=== PATIENT | female | born 1990 | race Caucasian/White ===

== ENCOUNTER 2023-03-05 10:39 | Outpatient (REF) | payer SELFPAY ==
[2023-03-05 14:22] LABS: Estimated Average Glucose 91 mg/dL; Hemoglobin A1c % 4.8 %
[2023-03-05 14:51] LABS: Alanine Aminotransferase 16 U/L (0-31); Albumin Level 4.1 g/dL (3.5-5.0); Alkaline Phosphatase 53 U/L (39-117); Anion Gap 9 (12-20); Aspartate Amino Transferase 14 U/L (5-31); Bilirubin Total 0.6 mg/dL (0.0-1.0); Blood Urea Nitrogen 16 mg/dL (9-16); Calcium 9.8 mg/dL (8.4-10.2); Carbon Dioxide 26 mmol/L (22-29); Chloride 107 mmol/L (96-108); Cholesterol 163 mg/dL; Estimated Glomerular Filt Rate > 60; Glucose Random 96 mg/dL (60-115); HDL Cholesterol 69 mg/dL; LDL Cholesterol Calculated 79 mg/dl; Potassium 4.5 mmol/L (3.3-5.1); Sodium 137 mmol/L (135-145); Triglycerides 75 mg/dL
[2023-03-05 15:08] LABS: TSH reflex Free T4 0.73 uIU/mL (0.32-4.0)
[2023-03-06 08:20] LABS: Hepatitis A Antibody IgM 0.29 Index (0-0.79); ~Hepatitis A Antibody IgM Nonreactive (Nonreactive)
[2023-03-06 08:46] LABS: HBS Num1 > 1000.00 mIU/mL (0-7.99); HBc Num1 0.09 S/CO (0.00-0.79); HBsAGNum1 0.31 S/CO (0.00-0.99); Hepatitis B Core Antibody Nonreactive (Nonreactive); Hepatitis B Surface Antigen Negative (Negative); ~HepC Num1 0.09 S/CO (0.00-0.79); ~Hepatitis B Surface Antibody REACTIVE (Nonreactive); ~Hepatitis C Antibody Nonreactive (Nonreactive)
== END 2023-03-05 10:40 | disposition home or self-care (01) ==
LOC: HO.HHCL 10:39
PROVIDERS: Visit Provider Registered Nurse
DX: R73.01 Impaired fasting glucose (principal)
CPT/HCPCS: 36415; 80053; 80061; 83036; 84443; 86704; 86706; 86709; 86803; 87340

== ENCOUNTER 2023-06-12 11:35 | Outpatient (REF) | payer BC, SELFPAY ==
[2023-06-12 13:36] LABS: MANUAL DIFF FLAG NO
[2023-06-12 13:51] LABS: Basophils Absolute Auto 0.1 X10*3/uL (0.0-0.2); Basophils Percent Auto 0.8 % (0-2); Eosinophils Absolute Auto 0.1 X10*3/uL (0.0-0.4); Eosinophils Percent Auto 0.8 % (0-4); Hematocrit 41.9 % (37.0-47.0); Hemoglobin 15.3 g/dl (12.0-16.0); Imm Gran Abs Auto 0.03 X10*3/uL (0.00-0.03); Imm Gran Pct Auto 0.4 % (0.0-0.4); Lymphocytes Absolute Auto 2.6 X10*3/uL (1.2-4.9); Mean Corpuscular HGB Conc 36.5 g/dl (31.0-35.0); Mean Corpuscular Hemoglobin 30.5 pg (27.0-33.0); Mean Corpuscular Volume 83.6 fL (80.0-98.0); Mean Platelet Volume 10.6 fL (9.4-12.3); Monocytes Absolute Auto 0.5 X10*3/uL (0.1-1.2); Monocytes Percent Auto 6.2 % (2-11); Neutrophils Absolute Auto 4.7 x10*3/uL (2.0-8.3); Neutrophils Percent Auto 58.8 % (45-73); Platelet Count 298 X10*3/uL (160-400); Red Blood Count 5.01 X10*6/uL (4.20-5.50); Red Cell Distribution Width 12.4 % (11.0-16.0); White Blood Count 7.9 X10*3/uL (4.8-10.8)
[2023-06-12 14:09] LABS: Alanine Aminotransferase 13 U/L (0-31); Albumin Level 4.1 g/dL (3.5-5.0); Alkaline Phosphatase 43 U/L (39-117); Anion Gap 12 (12-20); Aspartate Amino Transferase 15 U/L (5-31); Bilirubin Total 0.6 mg/dL (0.0-1.0); Blood Urea Nitrogen 10 mg/dL (9-16); Carbon Dioxide 22 mmol/L (22-29); Chloride 107 mmol/L (96-108); Estimated Glomerular Filt Rate > 60; Glucose Random 85 mg/dL (60-115); Sodium 137 mmol/L (135-145); Total Protein 7.1 g/dL (6.5-8.0)
[2023-06-13 03:44] LABS: HIV AB/AG Nonreactive (Nonreactive); HIV Num 1 0.06 S/CO (0.00-0.99)
[2023-06-14 19:34] LABS: TS Negative Control Passed; TS Panel A 4; TS Panel B 1; TS Positive Control Passed; TSpotTB Negative (Negative)
== END 2023-06-12 11:36 | disposition home or self-care (01) ==
LOC: HO.HHCL 11:35
PROVIDERS: Visit Provider Internal Medicine
DX: Z11.4 Encounter for screening for human immunodeficiency virus [HIV] (principal); Z11.1 Encounter for screening for respiratory tuberculosis; L40.0 Psoriasis vulgaris
CPT/HCPCS: 36415; 80053; 85025; 86481; 87389

== ENCOUNTER 2023-10-26 13:46 | Outpatient (REF) | payer BC, SELFPAY | END 2023-10-26 13:47 | disposition home or self-care (01) | LOC: HO.HHCLNP 13:46 | PROVIDERS: Visit Provider Internal Medicine | DX: N89.8 Other specified noninflammatory disorders of vagina (principal) | CPT/HCPCS: 36415; 81513 ==

== ENCOUNTER 2023-12-08 13:56 | Outpatient (REF) | payer BC, SELFPAY | END 2023-12-08 13:57 | disposition home or self-care (01) | LOC: HO.HHCL 13:56 | PROVIDERS: Visit Provider Student in an Organized Health Care Education/Training Program | DX: Z01.84 Encounter for antibody response examination (principal) | CPT/HCPCS: 36415; 86787 ==

== ENCOUNTER 2024-10-21 15:16 | Outpatient (REF) | payer OTHER, SELFPAY ==
--- OUTSIDE RECORDS SUMMARY | 2024-10-21 16:50 | XMS_ITS | Encounter Summary ---
Author Organization [employer] Address [address] 7t [place] [address] Care Team Providers Care Spray Booth Operator Name Role Phone Megan Tomas MD Primary Care Pro vider Encounter Details Date Type Department Care Team (Latest Contact Info) Description 10/21/2024 Travel Social History Tobacco Use Types Packs/Day Years Used Date Smoking Tobacco: Every Day Cigars Passive Smoke Exposure: Never Smokeless Tobacco: Never Comments:1 blunt/daily Alcohol Use Standard Drinks/Week Comments Yes 0 (1 standard drink = 0.6 oz pur e alcohol) rare, 2 drinks Depression Answer Date Recorded Patient Health Questionnaire-9 Score 1 03/05/2023 Housing Stability Answer Date Recorded What is your housing situation today? I have joseph macias 06/05/[address] you li ve. Do you have problems with any of the following? None of the above 06/05/2023 Food Insecurity Answer Date Recorded Within the past 12 months, y ou worried that your food would run out before you got money to buy more: Never True 06/05/2023 Within the past 12 months,th e food you bought just didn't last and you didn't have enough money to get more: Never True Transportation Answer Date Recorded In the past 12 months, has l ack of transportation kept you from medical appts, meetings, work or from getting things needed for daily living? No 06/05/2023 Utilities Answer Date Recorded In the past 12 months, has t he electric, gas, oil or water company threatened to shut off services in your home? No 06/05/2023 Depression Answer Date Recorded Patient Health Questionnaire-2 Score 0 03/05/2023 Comments No Sex and Gender Information Value Date Recorded Sex Assigned at Female 06/16/2022 10:30 AM EDT Legal Sex Female 10:30 AM EDT Gender Identity Female 06/16/2022 10:30 AM EDT Sexual Orientation Straight 06/16/2022 10 :30 AM EDT documented as of this encounter Plan of Treatment Not on file documented as of this encounter Visit Diagnoses Not on filedocumented in this encounter Additional Health Concerns Assessment Noted Time PHQ-9 Depression Total Score: 1 03/05/20 9:41 AM EDT documented as of this encounter Care Teams Spray Booth Operator Relationship Specialty Start Date End Date Megan Tomas MD [address] [place] [phone] PCP - General Internal Medicine 01/26/23 documented as of this encounter
--- OUTSIDE RECORDS SUMMARY | 2024-10-21 16:50 | XMS_ITS | Encounter Summary ---
Author Organization [employer] Address [address] [facility] 7t [place] [address] Care Team Providers Care Grocery Clerk Selling Name Role Phone Megan Tomas MD Primary Care Pro vider Reason for Visit * Reason Onset Date Comments returning call 02/20/2023 Encounter Details Date Type Department Care Team ([facility] Contact Info) Description 02/20/2023 Telephone [facility] [address] [place], [place] [phone] Megan Tomas MD [address] [place] [address] returning call Social History Tobacco Use Types Packs/Day Years Used Date Smoking Tobacco: Never Smokeless Tobacco: Never Alcohol Use Standard Drinks/Week Comments Yes 0 (1 standard drink = 0.6 oz pur e alcohol) rare Comments Unknown Sex and Gender Information Value Date Recorded Sex Assigned at Female 06/16/2022 10:30 AM EDT Legal Sex Female 10:30 AM EDT Gender Identity Female 06/16/2022 10:30 AM EDT Sexual Orientation Straight 06/16/2022 10 :30 AM EDT COVID-19 Exposure Response Date Recorded In the last 10 days, have yo u been in contact with someone who was confirmed or suspected to have Coronavirus/COVID-19? No / Unsure 02/11/2023 10:15 AM EDT documented as of this encounter Miscellaneous Notes * Telephone Encounter - Gaby Conrad - 02/20/2023 11:19 AM EDT Tc from pt returning nurses call for pre-visit planning. Please contact pt at [phone] documented in this encounter Plan of Treatment Not on file documented as of this encounter Visit Diagnoses Not on filedocumented in this encounter Care Teams Grocery Clerk Selling Relationship Specialty Start Date End Date Megan Tomas MD [address] [place] [phone] PCP - General Internal Medicine 01/26/23 documented as of this encounter
--- OUTSIDE RECORDS SUMMARY | 2024-10-21 16:50 | XMS_ITS | Encounter Summary ---
Author Organization [employer] Address [address] [place] [address] 7t [place] [address] Care Team Providers Care Inflated Ball Molder Name Role Phone Chuyita Verma [facility] Primary Care Provider Megan Tomas MD Primary Care Pro vider Encounter Details Date Type Department Care Team (Latest Contact Info) Description 04/06/2019 Abstract C CONVERSIONS Dental, Provider, DDS Social History Tobacco Use Types Packs/Day Years Used Date Smoking Tobacco: Never Assessed Comments Unknown Sex and Gender Information Value [...] on filedocumented in this encounter Care Teams Inflated Ball Molder Relationship Specialty Start Date End Date GreenwoodChuyita [facility] [address] [place] [address] PCP - General Family Medicine 02/11/22 01/25/23 Megan Tomas MD [address] [place] [address] PCP - General Internal Medicine 01/26/23 documented as of this encounter
--- OUTSIDE RECORDS SUMMARY | 2024-10-21 16:50 | XMS_ITS | Clinical Summary ---
Author Organization [employer] Address [address] [facility] 7t [place] [address] Care Team Providers Care Linux Systems Analyst Name Role Phone Megan Tomas MD Primary Care Pro vider Allergies Active Allergy Reactions Criticality Noted Date Comments Sulfamethoxazole Rash Low 06/18/2016 Sulfamethoxazole-Trimethoprim Rash Low 2022 Trimethoprim Rash Low 06/18/2016 Medications calcipotriene (Dovonex) 0.005 % ointmentIndicat ions:Rash APPLY BY TOPICAL ROUTE EVERY DAY A THIN LAYER TO THE AFFECTED AREA(S) RUB IN GENTLY AND COMPLETELY 60 g 1 3 Active busPIRone (Buspar) 15 MG tablet 15 mg 3 times daily. Take 1 tablet AM, 1/2 tablet midday, 1 tablet at bedtime 3 Active citalopram (CeleXA) 10 MG tablet 0 Active clonazePAM (KlonoPIN) 0.5 MG tablet Take 0.5 mg by mouth if needed in the morning and at bedtime. 3 Active betamethasone, augmented, (Diprolene) 0.05 % ointmentIndicat ions:Psoriasis vulgaris Apply topically 2 times daily. 50 g 3 3 Active fluconazole (Diflucan) 150 MG tabletIndicatio ns:Vaginal discharge Take one and then after 72hrs take another tablet 2 tablet 4 Active ustekinumab (Stelara) injection 90 mg at 0 and 4 weeks, and then 90 mg every 12 weeks 1 mL 11 4 Active Drospirenone (Slynd) 4 MG tablet Take 1 tablet by mouth Once per day. 84 tablet 3 5 Active Active Problems Problem Noted Date Diagnosed Date Vaginal discharge 10/26/2023 Assessment & Plan (10/26/2023 12:01 PM EDT): Likely yeast infection BV send to lab, patient will be contacted with results I advise do not hold urine, cotton underwear, do not use cloth to tide, weight loss... Obesity (BMI 30.0-34.9) 03/05/2023 Psoriasis 03/05/2023 Overview (03/05/2023): Worsening; patches present on knees, elbows, back, upper arms Treating with Calcipotriene 0.005%, cream improves sx slightly Assessment & Plan (03/05/2023 11:11 AM EDT): Will refer to Derm for f/u F/u PRN with PCP Health care maintenance 03/05/2023 Overview (03/13/2023): Routine Health Maintenance: Immunizations: Up to date HIV: Nonreactive 04/05/2020 Hep C: Nonreactive 04/05/2020 Hepatitis B: reactive surface antibodies, immune 03/05/23 Pap Smear: 04/24/22 NILM, HPV neg. Repeat 5 years, 2026 Lung cancer: Quit 10 years ago. Smoked on and off for 5 years. Eye: Wears eyeglasses 2020 or 2021 Dental: 3 years ago. Needs repeat exam Lactose intolerance 09/29/2016 Impaired fasting glucose 07/30/2016 Overview (03/05/2023): Hx of impaired fasting glucose Reports episodes of shaking tremors 4 hours after high carb meal Assessment & Plan (03/05/2023 11:07 AM EDT): Will check A1c today Notify results F/u PRN with PCP Subclinical hyperthyroidism 07/30/2016 Overview (03/05/2023): Hx of subclinical hyperthyroidism. Assessment & Plan (03/05/2023 11:09 AM EDT): Will check TSH w/ reflex Notify results F/U PRN with PCP Mixed anxiety and depressive disorder 06/18/2016 Overview (03/05/2023): Stable Has therapy private care [facility] Psych provider manages care Buspirone 15 mg, 1 tablet AM, 1/2 tablet midday, 1 tablet at bedtime. Celexa 10 mg daily. Clonazepam 0.5mg BID PRN for anxiety Assessment & Plan (03/05/2023 10:10 AM EDT): Continue with current regimen No concerns F/U PRN Encounters Date Type Department Care Team Description 10/21/2024 2:30 PM EST Office Visit [facility] [address] [place] [address] Kesha Yañez MD Psoriasis vulgaris (Primary Dx) 10/21/2024 Travel 10/20/2024 Travel 10/05/2024 Telephone [facility] [address] [place] [address] Megan Vasquez MD 09/23/2024 Telephone [facility] [address] [place] [address] Hoda Martines [place] derm appt 09/01/2024 Telephone [facility] [address] [place] [address] Delfina Robin CNM 09/01/2024 Orders Only [facility] [address] [place] [address] Delfina Robin CNM Unspecified dyspareunia (Primary Dx) 08/18/2024 Refill [facility] [address] [place] [address] Lillian Horvath RN from Last 3 Months Immunizations Name Administration Dates Next Due DTaP 03/21/1997, 5,10/03/1991,11/15 HPV, Quadrivalent 02/24/2011 Hib (HbOC) 10/03/1991 IPV 03/21/1997, 5,10/03/1991,11/15 Influenza injectable quadriv alent preservative free 06/09/2021 MMR 05/05/1995,11/15/1990 Meningococcal MCV4P ACYW-135 12/18/2006 TD (adult), 2 Lf tetanus tox oid, preservative free, adsorbed 07/17/2010,02/28/2002 Tdap 08/19/2017,12/07/2006 Family History Medical History Relation Name Comments Heart disease Maternal Grandmother Bipolar disorder Mother Bipolar disorder Mother's Sister Breast cancer Mother's Sister Skin cancer Paternal Grandfather Bipolar disorder Sister Relation Name Status Comments Maternal Grandmother Mother Mother's Sister Paternal Grandfather Sister Social History Tobacco Use Types Packs/Day Years Used Date Smoking Tobacco: Every Day Cigars Passive Smoke Exposure: Never Smokeless Tobacco: Never Tobacco Cessation:Ready to Q uit: Not Asked Comments:1 blunt/daily Alcohol Use Standard Drinks/Week Comments Yes 0 (1 standard drink = 0.6 oz pur e alcohol) rare, 2 drinks Depression Answer Date Recorded Patient Health Questionnaire-9 Score 1 03/05/2023 Housing Stability Answer Date Recorded What is your housing situation today? I have josephhermes macias 06/05/[address] you [...] Orientation Straight 06/16/2022 10 :30 AM EDT Last Filed Vital Signs Vital Sign Reading Time Taken Comments Blood Pressure 118/64 10/21/2024 2:46 PM EST Pulse 68 10/21/2024 2:46 PM EST Temperature 37.1 ??C (98.7 ??F) 10/21/2024 2:46 PM ES T Respiratory Rate 14 10/21/2024 2:46 PM EST Oxygen Saturation 98% 07/21/2024 9:29 AM EST Inhaled Oxygen Concentration - - Weight 105 kg (231 lb 9.6 oz) 10/21/2024 2:46 PM EST Height 170.2 cm (5' 7 ) 10/21/2024 2:46 PM EST Body Mass Index 36.27 10/21/2024 2:46 PM EST Plan of Treatment Health Maintenance Due Date Last Done Comments Alcohol/Substance Use Screening 2001 Hepatitis B Vaccines (1 of 3 - 19+ 3-dose series) 2008 Pneumococcal Vaccine: Pediatrics (0 to 5 Years) and At-Risk Patients (6 to 49) Years) (1 of 2 - PCV) 2008 HPV Vaccines (2 - 3-dose series) 03/24/2011 02/24/2011 SDOH Screening 02/21/2024 02/20/2023 Depression Screening 03/05/2024 03/05/2023, 03/05/20 23 COVID-19 Vaccine ( season) 2024 07/21/2021, 11/22/2020 Pap Smear 04/24/2025 04/24/2022 Family Planning (PISQ) 07/21/2025 07/21/2024 Tobacco Screening 07/21/2025 07/21/2024 Cervical Cancer Screening 04/24/2027 HPV/Cotest 04/24/2027 04/24/2022 DTaP/Tdap/Td Vaccines (8 - Td or Tdap) 08/19/2027 08/19/2017, 07/17/2010, 12/07/2006, Additional history exists Lipid Panel 03/05/2028 03/05/2023 Zoster Vaccines (1 of 2) 2039 RSV Patients and Patients Aged 60 years or older (1 - 1-dose 75+ series) 2064 HIB Vaccines Completed 10/03/1991 IPV Vaccines Completed 03/21/1997, 08/1994, 10/03/1991, Additional history exists Meningococcal Vaccine Completed 12/18/2006 Hepatitis C Screening Completed 03/05/2023, 020 HIV Screening Completed 06/12/2023, 04/05/2020 Influenza Vaccine Completed 05/27/2024, 06/09/2021 Hepatitis A Vaccines Aged Out No long er eligible based on patient's age to complete this topic RSV under 20 months Aged Out No longe r eligible based on patient's age to complete this topic Rotavirus Vaccines Aged Out No longer eligible based on patient's age to complete this topic Procedures Procedure Name Priority Date/Time Associated Diagnosis Comments HIV ANTIBODY/ANTIGEN ([place] DPH) Routine 06/12/2023 11:41 AM EDT HEPATITIS PANEL, GENERAL Routine 03/05/2023 10:45 AM EDT Encounter for well adult exam with abnormal findings LIPID PANEL, STANDARD Routine 03/05/2023 10:45 AM EDT Encounter for well adult exam with abnormal findings THINPREP IMAGING PAP AND HPV MRNA E6/E7 WITH REFLEX TO HPV 16,18/45 Routine 04/24/2022 10:00 AM EDT from Last 3 Months or Most Recently Relevant to Health Maintenance Results * HIV Ab/Ag ([place] DPH) (06/12/2023 11:41 AM EDT) HIV AB/AG Nonreactive Nonreactive [facility] Comment:HIV-1 p24 Ag and/or HIV-1/HIV-2 Ab not detected.A test result that is nonreactive does not exclude thepossibility of exposure to or infection with HIV-1 and/orHIV-2. Nonreactive results in this assay for individualswith prior exposure to HIV-1 and/or HIV-2 may be due toantigen and antibody levels that are below the limit ofdetection of this assay.The [facility] HIV Ag/Ab Combo assay result andsupplemental assay results should be interpreted inconjunction with the patient's clinical presentation,history and other laboratory results. If the results areinconsistent with clinical evidence, additional testing issuggested to confirm the result. 06/12/2023 11:4 1 AM EDT 06/12/2023 1:33 PM EDT Kesha Yañez MD LAB BLOOD ORDERABLES Final Re sult Performing Organization Address [facility] Co de Phone Number [facility] [address] [place] [address] [phone] * Hepatitis Panel, General (03/05/2023 10:45 AM EDT) Hepatitis A IgM Nonreactive Nonreactive [facility] Comment:IgM antibodies to GAYLE V not detected; does not exclude earlyacute or recovered HAV infection. ~Hepatitis B Surface Antibody REACTIVE Nonreactive [facility] Comment:REACTIVE: > 11.99 mI U/mL Hepatitis B Core Antibody Nonreactive Nonreactive [facility] Hepatitis C Antibody Nonreactive Nonreactive [facility] Comment:Antibodies to HCV no t detected; does not exclude early acuteHCV infection. Hepatitis B Surface Ag Negative Negative [facility] Blood 03/05/2023 10:4 5 AM EDT 03/05/2023 1:35 PM EDT Gosia GARCIAP LAB BLOOD ORDERABLES Final Result Performing Organization Address [facility] Co de Phone Number [facility] [address] [place] [address] [phone] * Lipid Panel, Standard (03/05/2023 10:45 AM EDT) Triglycerides 75 mg/dL [facility] Comment:Desirable Triglyceri de: less than 150 mg/dLBorderline High Triglyceride 150-199 mg/dLHigh Triglyceride: 200-499 mg/dLVery High Triglyceride: greater than or equal to 5OO mg/dL Cholesterol 163 mg/dL [facility] Comment:Desirable Cholestero l: less than 200 mg/dLBorderline High Cholesterol: 200-239 mg/dLHigh Cholesterol: greater than 239 mg/dL LDL Cholesterol Calculated 79 mg/dl [facility] Comment:Desirable LDL: less than 100 mg/dLNear Optimal/Above Optimal LDL: 110- 129 mg/dLBorderline High LDL: 130-159 mg/dLHigh LDL: 160-189 mg/dLVery High LDL: greater than or equal to 190 mg/dL HDL Cholesterol 69 mg/dL [facility] Comment:Desirable HDL: great er than 40 mg/dL Note: This HDL assay may give artificially low results in patients with liver disease. Blood Venous blood specimen / Unknown 03/05/2023 10:45 AM EDT 03/05/2023 1:35 PM EDT Gosia Pozo [employer] LAB BLOOD ORDERABLES Final Result [facility] [address] [place] [phone] * THINPREP TIS PAP AND HPV mRNA E6/E7 WITH REFLEX TO HPV 16,18/45 (04/24/2022 10:00 AM EDT) Clinical Information: None given [facility] COMMENT SEE COMMENT [facility] Comment: EXPLANATORY NOTE: ? The Pap is a screening test for cervical cancer. It is ?? not a diagnostic test and is subject to false negative ?? and false positive results. It is most reliable when a ?? satisfactory sample, regularly obtained, is submitted ?? with relevant clinical findings and history, and when ?? the Pap result is evaluated along with historic and ?? current clinical information. ?? COMMENT: This Pap test has been evaluated with computer assisted technology. [facility] Cytotechnologis t: SEE COMMENT [facility] Comment: MSM, CT(ASCP) CT screening location: [address] [place] [address] ??[address] HPV nRNA E6/E7 Not Detected Not Detected [facility] Comment: Methodology: Fittings Finisher-Mediated Amplification This assay detects E6/E7 viral messenger RNA (mRNA) from 14 high-risk HPV types (16,18,31,33,35,39,45,51,52,56,58,59,66,68). ? Cervical sources are required for HPV testing. If a vaginal source from a patient who has had a total hysterectomy with removal of cervix was ?? submitted, please contact the testing laboratory for alternative testing options. ?? For additional information, please refer to http://education.[employer]/faq/OKK388z8 (This link if provided for information/ educational purposes only.) Interpretation/ Result: Negative for intraepithelial lesion or malignancy. [facility] LMP: 03/27/2027 [facility] Prev. BX: NONE GIVEN [facility] Prev. PAP: NIL 04/2019 [facility] SOURCE: Cervix [facility] Statement Of Adequacy: SEE COMMENT [facility] Comment: Satisfactory for evaluation. Endocervical/transformation zone component absent. 04/24/2022 10:0 0 AM EDT us Delfina Robin CNM LAB PATHOLOGY ORDERABLES Final Result [facility] [address] from Last 3 Months or Most Recently Relevant to Health Maintenance Insurance [facility] , [address] [place] [address] Care Teams Linux Systems Analyst Relationship Specialty Start Date End Date Megan Tomas MD [address] [place] [phone] PCP - General Internal Medicine 01/26/23
--- OUTSIDE RECORDS SUMMARY | 2024-10-21 16:50 | XMS_ITS | Encounter Summary ---
Author Organization [employer] Address [address] [facility] 7t [place] [address] Care Team Providers Care Manager Of Development Name Role Phone Megan Tomas MD Primary Care Pro vider Reason for Visit * Reason Onset Date Comments Prior Authorization 01/25/2024 Encounter Details Date Type Department Care Team ([facility] st Contact Info) Description 01/25/2024 Telephone [facility] [address] [place], [place] [phone] Megan Tomas MD [address] [place] [address] Prior Authorization Social History Tobacco Use Types Packs/Day Years Used Date Smoking Tobacco: Never Passive Smoke Exposure: Current Smokeless Tobacco: Never Comments: smokes Alcohol Use Standard Drinks/Week Comments Yes 0 [...] encounter Miscellaneous Notes * Telephone Encounter - Sarbjit Madden - 01/25/2024 9:59 AM EDT Tc from [facility] Specialty calling to inform ustekinumab (Stelara) injection needs a PA and also provided a number to contact for PA. If any questions please contact [facility] at [phone]. Number provided for PA: [phone] documented in this encounter Plan of Treatment Not on file documented as of this encounter Visit Diagnoses Not on filedocumented in this encounter Additional Health Concerns Assessment Noted Time PHQ-9 Depression Total Score: 1 03/05/20 23 9:41 AM EDT documented as of this encounter Care Teams Manager Of Development Relationship Specialty Start Date End Date Megan Tomas MD [address] [place] [address] PCP - General Internal Medicine 01/26/23 documented as of this encounter
--- OUTSIDE RECORDS SUMMARY | 2024-10-21 16:50 | XMS_ITS | Encounter Summary ---
Author Organization [employer] Address [address] [facility] [address]t [place] [address] Care Team Providers Care Inventory Analyst Name Role Phone Megan Tomas MD Primary Care Pro vider Reason for Visit * Reason Comments Med Refill Encounter Details Date Type Department Care Team ([facility] Contact Info) Description 07/19/2024 Refill [facility] [address] [place], [place] [phone] Delfina Robin, PACO [address] [place] [address] Social History Tobacco Use Types Packs/Day Years [...] documented as of this encounter Care Teams Inventory Analyst Relationship Specialty Start Date End Date Megan Tomas MD [address] [place] [phone] PCP - General Internal Medicine 01/26/23 documented as of this encounter
--- OUTSIDE RECORDS SUMMARY | 2024-10-21 16:50 | XMS_ITS | Encounter Summary ---
Author Organization [employer] Address [address] [facility] [address] 7t [place] [address] Care Team Providers Care Transfer Car Operator Drier Name Role Phone Megan Tomas MD Primary Care Pro vider Reason for Visit * Reason Onset Date Comments Med Refill 07/18/2024 Encounter Details Date Type Department Care Team ([facility] st Contact Info) Description 07/18/2024 Refill [facility] [address] [place], [place] [phone] Delfina Robin, [facility] [address] [place] [address] Social History Tobacco Use Types Packs/Day Years [...] documented as of this encounter Care Teams Transfer Car Operator Drier Relationship Specialty Start Date End Date Megan Tomas MD [address] [place] [phone] PCP - General Internal Medicine 01/26/23 documented as of this encounter
--- OUTSIDE RECORDS SUMMARY | 2024-10-21 16:50 | XMS_ITS | Encounter Summary ---
Author Organization [employer] Address [address] [facility] [address] [place] [address] Care Team Providers Care Hydrator Name Role Phone Megan Tomas MD Primary Care Pro vider Reason for Visit * Reason Comments Med Refill Encounter Details Date Type Department Care Team ([facility] Contact Info) Description 07/13/2024 Refill [facility] [address] [place], [place] [phone] Delfina Robin, PACO [address] [place] [address] Social History Tobacco Use Types Packs/Day Years [...] documented as of this encounter Care Teams Hydrator Relationship Specialty Start Date End Date Megan Tomas MD [address] [place] [phone] PCP - General Internal Medicine 01/26/23 documented as of this encounter
--- OUTSIDE RECORDS SUMMARY | 2024-10-21 16:50 | XMS_ITS | Encounter Summary ---
Author Organization [employer] Address [address] [facility] [address] 7[address] [place] [address] Care Team Providers Care Clerk Of Works Name Role Phone Megan Tomas MD Primary Care Pro vider Reason for Visit * Reason Comments Med Refill Encounter Details Date Type Department Care Team ([facility] Contact Info) Description 07/18/2024 Refill [facility] MEDICINE [address] [place], [place] [phone] Delfina Robin, PACO [address] [place] [address] Social History Tobacco Use Types Packs/Day Years [...] documented as of this encounter Care Teams Clerk Of Works Relationship Specialty Start Date End Date Megan Tomas MD [address] [place] [address] PCP - General Internal Medicine 01/26/23 documented as of this encounter
--- OUTSIDE RECORDS SUMMARY | 2024-10-21 16:50 | XMS_ITS | Encounter Summary ---
Author Organization [employer] Address [address] [facility] [address] 7t [place] [address] Care Team Providers Care Mannequin Decorator Name Role Phone Megan Tomas MD Primary Care Pro vider Encounter Details Date Type Department Care Team ([facility] st Contact Info) Description 10/21/2024 2:30 PM EST Office Visit [facility] MEDICINE [address] [place], [place] [phone] Kesha Yañez MD 230 [place] [address] Psoriasis vulgaris (Primary Dx) Social History Tobacco Use Types Packs/Day Years [...] AM EDT documented as of this encounter Last Filed Vital Signs Vital Sign Reading Time Taken Comments Blood Pressure 118/64 10/21/2024 2:46 PM EST Pulse 68 10/21/2024 2:46 PM EST Temperature 37.1 ??C (98.7 ??F) 10/21/2024 2:46 PM ES T Respiratory Rate 14 10/21/2024 2:46 PM EST Oxygen Saturation - - Inhaled Oxygen Concentration - - Weight 105 kg (231 lb 9.6 oz) 10/21/2024 2:46 PM EST Height 170.2 cm (5' 7 ) 10/21/2024 2:46 PM EST Body Mass Index 36.27 10/21/2024 2:46 PM EST documented in this encounter Progress Notes * Kesha Yañez MD - 10/21/2024 2:30 PM EST Subjective Patient ID: Sheeba Brown is a 34 y.o. female who presents for No chief complaint on file.. HPI 34 yr old woman with psoriasis on Stelara with great resolution of skin plaques. No side effects. Review of Systems Constitutional: Negative for diaphoresis, fatigue and fever. HENT: Negative for ear discharge, ear pain, facial swelling and hearing loss. Respiratory: Negative for cough, choking, chest tightness and shortness of breath. Cardiovascular: Negative for chest pain and leg swelling. Gastrointestinal: Negative for abdominal distention, abdominal pain and anal bleeding. Endocrine: Negative for cold intolerance and heat intolerance. Genitourinary: Negative for enuresis, flank pain and frequency. Musculoskeletal: Negative for arthralgias, back pain and gait problem. Neurological: Negative for dizziness, facial asymmetry and headaches. Psychiatric/Behavioral: Negative for agitation, behavioral problems and confusion. Objective Physical Exam Constitutional: Appearance: Normal appearance. HENT: Head: Normocephalic and atraumatic. Nose: Nose normal. Eyes: Pupils: Pupils are equal, round, and reactive to light. Pulmonary: Effort: Pulmonary effort is normal. Musculoskeletal: General: Normal range of motion. Cervical back: Normal range of motion. Skin: Comments: Skin clear Neurological: General: No focal deficit present. Mental Status: She is alert. Assessment/Plan Diagnoses and all orders for this visit: Psoriasis vulgaris Stable Clear skin Continue Stelara Quantiferon test to be updated. RTC in 1 yr - QuantiFERON TB Gold documented in this encounter Plan of Treatment Scheduled Orders Name Type Priority Associated Diagnoses Orde r Schedule QuantiFERON TB Gold Lab Routine Psoriasis vulgaris Ordered: 10/21/2024 documented as of this encounter Visit Diagnoses Diagnosis Psoriasis vulgaris- Primary Other psoriasis documented in this encounter Additional Health Concerns Assessment Noted Time PHQ-9 Depression Total Score: 1 03/05/20 9:41 AM EDT documented as of this encounter Care Teams Mannequin Decorator Relationship Specialty Start Date End Date Megan Tomas MD [address] [place] [address] PCP - General Internal Medicine 01/26/23 documented as of this encounter
--- OUTSIDE RECORDS SUMMARY | 2024-10-21 16:50 | XMS_ITS | Encounter Summary ---
Author Organization [employer] Address [address] [facility] [address] [place] [address] Care Team Providers Care Match Maker Name Role Phone Megan Tomas MD Primary Care Pro vider Encounter Details Date Type Department Care Team (Latest Contact Info) Description 10/20/2024 Travel Social History Tobacco Use Types Packs/Day [...] documented as of this encounter Care Teams Match Maker Relationship Specialty Start Date End Date Megan Tomas MD [address] [place] [id number] PCP - General Internal Medicine 01/26/23 documented as of this encounter
--- OUTSIDE RECORDS SUMMARY | 2024-10-21 16:50 | XMS_ITS | Encounter Summary ---
Author Organization [employer] Address [address] [facility] [address] 7t [place] [address] Care Team Providers Care Beeswax Bleacher Name Role Phone Megan Tomas MD Primary Care Pro vider Reason for Visit * Reason Onset Date Comments derm appt 09/23/2024 Encounter Details Date Type Department Care Team ([facility] Contact Info) Description 09/23/2024 Telephone [facility] MEDICINE 230 [place] [address] Hoda Martines [place] derm appt Social History Tobacco Use Types Packs/Day Years [...] encounter Miscellaneous Notes * Telephone Encounter - Car Griggs - 09/27/2024 11:08 AM EST TC from pt returning call regarding prior message. Pt said that she will take any apt as long as she has time to move everything around that day. Contact pt at [phone] * Telephone Encounter - Hoda Martines MA - 09/23/2024 1:28 PM EST Florinda martínez return the call * Telephone Encounter - Car Griggs - 09/23/2024 11:28 AM EST Tc from pt regarding prior message. Conatct pt at [phone] Pt requesting for a call back after 1 due to pt being in Therapy till that time. * Telephone Encounter - Hoda Martines MA - 09/23/2024 10:44 AM EST Florinda martínez called pt to schedule a f/u appt to be seen in dermatology documented in this encounter Plan of Treatment Not on file documented as of this encounter Visit Diagnoses Not on filedocumented in this encounter Additional Health Concerns Assessment Noted Time PHQ-9 Depression Total Score: 1 03/05/20 23 9:41 AM EDT documented as of this encounter Care Teams Beeswax Bleacher Relationship Specialty Start Date End Date Megan Tomas MD [address] [place] [id number] PCP - General Internal Medicine 01/26/23 documented as of this encounter
--- OUTSIDE RECORDS SUMMARY | 2024-10-21 16:50 | XMS_ITS | Encounter Summary ---
Author Organization [employer] Address [address] [facility] 7t [place] [address] Care Team Providers Care Regional Marketing Manager Name Role Phone Megan Tomas MD Primary Care Pro vider Encounter Details Date Type Department Care Team ([facility] st Contact Info) Description 04/06/2023 Orders Only [facility] MED & PEDS [address] [place] [address] Jennifer Sarah LPN Social History Tobacco Use Types Packs/Day Years Used Date Smoking Tobacco: Never Passive Smoke Exposure: Current Smokeless Tobacco: Never Comments: smokes Alcohol Use Standard Drinks/Week Comments Yes 0 (1 standard drink = 0.6 oz pur e alcohol) rare, 2 drinks Depression Answer Date Recorded Patient Health Questionnaire-9 Score 1 03/05/2023 Depression Answer Date Recorded Patient Health Questionnaire-2 Score 0 03/05/2023 Comments Unknown Sex and Gender Information Value [...] documented as of this encounter Care Teams Regional Marketing Manager Relationship Specialty Start Date End Date Megan Tomas MD 230 [place] [address] PCP - General Internal Medicine 01/26/23 documented as of this encounter
--- OUTSIDE RECORDS SUMMARY | 2024-10-21 16:50 | XMS_ITS | Encounter Summary ---
Author Organization [employer] Address [address] [place] [address] 7t [place] [address] Care Team Providers Care Cae Engineer Name Role Phone Megan Tomas MD Primary Care Pro vider Reason for Visit * Reason Onset Date Comments Nurse Triage 02/11/2023 Encounter Details Date Type Department Care Team ([facility] Contact Info) Description 02/11/2023 Telephone [facility] MEDICINE 230 [place], [place] [phone] Megan Tomas MD 230 [place] [address] Nurse Triage Social History Tobacco Use Types Packs/Day Years [...] encounter Miscellaneous Notes * Telephone Encounter - Erica De Paz RN - 02/11/2023 9:33 AM EDT Triage call Pt reports severe sore throat started 3 days ago. Fever at night not at time of call. Pt reports nothing is helping the pain . Salt water gargle is the only thing that soothes it a littlebit. Home care reviewed. Pt is advised to come to [facility] today to be seen by provider and Pt agrees with disposition. Insurance is verified as active. Protocol Used: Sore Throat (Adult) Protocol-Based Disposition: See in Office or Video Visit Today Video visit not offered Positive Triage Questions: * Severe sore throat pain * Patient wants to be seen * All higher-acuity triage questions were negative Care Advice Discussed: * For Relief of Sore Throat Pain * Pain and Fever Medicines * Pain and Fever Medicines - Extra Notes and Warnings * Soft Diet * Drink Plenty of Liquids * Contagiousness * Expected Course * Reasons To Call Back - Sore throat is the main symptom and it lasts longer than 48 hours - Sore throat is mild but lasts longer than 4 days - Fever lasts longer than 3 days - You become worse * Telephone Encounter - Allyson Norman - 02/11/2023 9:11 AM EDT Symptoms: Sore Throat, Chills, Cough x 3 days Outcome: Schedule an urgent appointment (within 4 hours) or talk to a nurse or provider soon Reason: Trouble drinking The caller accepted this outcome documented in this encounter Plan of Treatment Not on file documented as of this encounter Visit Diagnoses Not on filedocumented in this encounter Care Teams Cae Engineer Relationship Specialty Start Date End Date Megan Tomas MD [address] [place] [id number] PCP - General Internal Medicine 01/26/23 documented as of this encounter
--- OUTSIDE RECORDS SUMMARY | 2024-10-21 16:50 | XMS_ITS | Encounter Summary ---
Author Organization [employer] Address [address] [facility] [address] 7t [place] [address] Care Team Providers Care Sizer Hand Name Role Phone Megan Tomas MD Primary Care Pro vider Encounter Details Date Type Department Care Team ([facility] st Contact Info) Description 10/05/2024 Telephone [facility] MEDICINE 230 [place], [place] [phone] Megan Vasquez MD [address] [place] [address] Social History Tobacco Use Types Packs/Day Years [...] encounter Miscellaneous Notes * Telephone Encounter - Umesh Marcos MA - 10/05/2024 8:04 AM EST T/c to pt schedule a appt 10/21/2024 at 2;30pm appt remainder mail documented in this encounter Plan of Treatment Not on file documented as of this encounter Visit Diagnoses Not on filedocumented in this encounter Additional Health Concerns Assessment Noted Time PHQ-9 Depression Total Score: 1 03/05/20 9:41 AM EDT documented as of this encounter Care Teams Sizer Hand Relationship Specialty Start Date End Date Megan Tomas MD [address] [place] [phone] PCP - General Internal Medicine 01/26/23 documented as of this encounter
--- OUTSIDE RECORDS SUMMARY | 2024-10-21 16:50 | XMS_ITS | Encounter Summary ---
Author Organization [employer] Address [address] [place] [address] 7t [place] [address] Care Team Providers Care Van Helper Name Role Phone Chuyita Verma [facility] Primary Care Provider [phone] Megan Tomas MD Primary Care Pro vider Encounter Details Date Type Department Care Team (Latest Contact Info) Description 06/07/[address] [facility] CONVERSIONS Dental, Provider, DDS Social History Tobacco [...] on filedocumented in this encounter Care Teams Van Helper Relationship Specialty Start Date End Date HornickChuyita [facility] 230 [place] [address] PCP - General Family Medicine 02/11/22 01/25/23 Megan Tomas MD [address] [place] [address] PCP - General Internal Medicine 01/26/23 documented as of this encounter
[2024-10-24 17:27] LABS: TS Negative Control Passed; TS Panel A 1; TS Panel B 2; TS Positive Control Passed; TSpotTB Negative (Negative)
== END 2024-10-21 15:17 | disposition home or self-care (01) ==
LOC: HO.HHCL 15:16
PROVIDERS: Visit Provider Internal Medicine
DX: L40.0 Psoriasis vulgaris (principal)
CPT/HCPCS: 36415; 86481

== ENCOUNTER 2025-05-31 13:27 | Outpatient (REF) | payer OTHER, SELFPAY ==
--- OUTSIDE RECORDS SUMMARY | 2025-05-31 17:10 | XMS_ITS | Encounter Summary ---
Author Organization [employer] Address [address] [place] [address] 7 [place] [address] Care Team Providers Care Liquid Yeast Supervisor Name Role Phone Chuyita Verma [facility] Primary Care Provider [phone] Megan Tomas MD Primary Care Pro vider Encounter Details Date Type Department Care Team (Latest Contact Info) Description 04/06/2019 Abstract [facility] CONVERSIONS Dental, Provider, DDS Social History Tobacco [...] on filedocumented in this encounter Care Teams Liquid Yeast Supervisor Relationship Specialty Start Date End Date Chuyita Verma [facility] 230 [place] [address] PCP - General Family Medicine 02/11/22 01/25/23 Megan Tomas MD 230 [place] [address] PCP - General Internal Medicine 01/26/23 documented as of this encounter
--- OUTSIDE RECORDS SUMMARY | 2025-05-31 17:10 | XMS_ITS | Encounter Summary ---
Author Organization [employer] Address [address] [facility] 7t [place] [address] Care Team Providers Care Cloud Infrastructure Architect Name Role Phone Megan Tomas MD Primary Care Pro vider Reason for Visit * Reason Comments Med Refill Encounter Details Date Type Department Care Team ([facility] Contact Info) Description 07/13/2024 Refill [facility] MEDICINE [address] [place] [address] Delfina Robin CNM [address] [place] [address] Social History Tobacco Use Types Packs/Day Years [...] documented as of this encounter Care Teams Cloud Infrastructure Architect Relationship Specialty Start Date End Date Megan Tomas MD [address] [place] [phone] PCP - General Internal Medicine 01/26/23 documented as of this encounter
--- OUTSIDE RECORDS SUMMARY | 2025-05-31 17:10 | XMS_ITS | Encounter Summary ---
Author Organization [employer] Address [address] [place] [address] 7 [place] [address] Care Team Providers Care Factory Maintenance Technician Name Role Phone Megan Tomas MD Primary Care Pro vider Reason for Visit * Reason Onset Date Comments Nurse Triage 02/11/2023 Encounter Details Date Type Department Care Team ([facility] st Contact Info) Description 02/11/[address] [facility] MEDICINE 230 [place] [address] Megan Tomas MD 230 [place] [address] Nurse Triage Social History Tobacco Use Types [...] reviewed. Pt is advised to come to [facility] today to be seen by provider and [...] on filedocumented in this encounter Care Teams Factory Maintenance Technician Relationship Specialty Start Date End Date Megan Tomas MD [address] [place] [phone] PCP - General Internal Medicine 01/26/23 documented as of this encounter
--- OUTSIDE RECORDS SUMMARY | 2025-05-31 17:10 | XMS_ITS | Encounter Summary ---
Author Organization [employer] Address [address] [place] [address] 7 [place] [address] Care Team Providers Care Custodial Manager Name Role Phone Megan Tomas MD Primary Care Pro vider Reason for Visit * Reason Onset Date Comments Prior Authorization 01/25/2024 Encounter Details Date Type Department Care Team ([facility] st Contact Info) Description 01/25/2024 Telephone [facility] MEDICINE 230 [place] [address] Megan Tomas MD [address] [place] [address] Prior Authorization Social History Tobacco Use Types [...] - 01/25/2024 9:59 AM EDT Tc from [facility] Specialty calling to inform ustekinumab (Stelara) injection needs a PA and also provided a number to contact for PA. If any questions please contact [facility] at [phone]. Number provided for PA: [phone] documented in this encounter Plan of Treatment Not on file documented as of this encounter Visit Diagnoses Not on filedocumented in this encounter Additional Health Concerns Assessment Noted Time PHQ-9 Depression Total Score: 1 03/05/20 23 9:41 AM EDT documented as of this encounter Care Teams Custodial Manager Relationship Specialty Start Date End Date Megan Tomas MD [address] [place] [id number] PCP - General Internal Medicine 01/26/23 documented as of this encounter
--- OUTSIDE RECORDS SUMMARY | 2025-05-31 17:10 | XMS_ITS | Encounter Summary ---
Author Organization [employer] Address [address] [facility] [address] 7t [place] [address] Care Team Providers Care Sheriffs Officer Name Role Phone Megan Tomas MD Primary Care Pro vider Reason for Visit * Reason Onset Date Comments Med Refill 07/18/2024 Encounter Details Date Type Department Care Team (Late st Contact Info) Description 07/18/2024 Refill [facility] MEDICINE 230 [place] [address] Delfina Robin, CN [address] [place] [address] Social History Tobacco Use Types Packs/Day Years [...] documented as of this encounter Care Teams Sheriffs Officer Relationship Specialty Start Date End Date Megan Tomas MD [address] [place] [address] PCP - General Internal Medicine 01/26/23 documented as of this encounter
--- OUTSIDE RECORDS SUMMARY | 2025-05-31 17:10 | XMS_ITS | Encounter Summary ---
Author Organization [employer] Address [address] [facility] 7 [place] [address] Care Team Providers Care Fish Frog Or Oyster Farmer Name Role Phone Megan Tomas MD Primary Care Pro vider Reason for Visit * Reason Onset Date Comments Lab Orders 05/26/2025 Encounter Details Date Type Department Care Team ([facility] st Contact Info) Description 05/26/2025 Telephone [facility] MEDICINE 230 [place] [address] Megan Tomas MD [address] [place] [address] Lab Orders Social History Tobacco Use Types Packs/Day Years [...] encounter Miscellaneous Notes * Telephone Encounter - Lillian Horvath RN - 05/30/2025 11:57 AM EDT Telephone call placed to pt. Informed of below. She states will come tomorrow for blood work. I sent referral to [facility] and order blood HCG Please advise to avoid ETOH , drugs if using and continue daily prenatals Please inform alarm sings and symptoms as urinary symptoms,vaginal spotting and please confirm med list w pt to evaluation if something needs to be stop Thanks * Telephone Encounter - Lillian Horvath RN - 05/29/2025 9:10 AM EDT Telephone call returned to pt regarding below message. Pt reports that her and her spouse have beentrying to conceive. She had a positive home test and is very happy about it. Pt reports already taking vitamins. Inquired where she wants to go for care. Pt requesting referral to [facility] for this. Informed that serum HCG gives ranges, it won't specify exactly how far along she is. If she is uncertain, would go off of last menses and can request dating [place] withprenatal care provider which they do within a couple weeks. Pt agrees with plan. * Telephone Encounter - Jai Wong - 05/26/2025 8:58 AM EDT Tc from pt requesting lab order for test as she had a positive at home one and she thinksshe may be further along then she things . Last period was 04/28-04/30. Pt planning on keeping Contact pt at [phone] documented in this encounter Plan of Treatment Not on file documented as of this encounter Visit Diagnoses Not on filedocumented in this encounter Additional Health Concerns Assessment Noted Time PHQ-9 Depression Total Score: 1 03/05/20 23 9:41 AM EDT documented as of this encounter Care Teams Fish Frog Or Oyster Farmer Relationship Specialty Start Date End Date Megan Tomas MD [address] [place] [address] PCP - General Internal Medicine 01/26/23 documented as of this encounter
--- OUTSIDE RECORDS SUMMARY | 2025-05-31 17:10 | XMS_ITS | Encounter Summary ---
Author Organization [employer] Address [address] [facility] 7t [place] [address] Care Team Providers Care Cigar Sorter Name Role Phone Megan Tomas MD Primary Care Pro vider Reason for Visit * Reason Comments Med Refill Encounter Details Date Type Department Care Team ([facility] st Contact Info) Description 07/18/2024 Refill [facility] MEDICINE 230 [place] [address] Delfina Robin CNM [address] [place] [address] Social History Tobacco Use Types Packs/Day Years [...] documented as of this encounter Care Teams Cigar Sorter Relationship Specialty Start Date End Date Megan Tomas MD [address] [place] [address] PCP - General Internal Medicine 01/26/23 documented as of this encounter
--- OUTSIDE RECORDS SUMMARY | 2025-05-31 17:10 | XMS_ITS | Encounter Summary ---
Author Organization [employer] Address [address] [facility] 7t [place] [address] Care Team Providers Care Sales Administration Manager Name Role Phone Megan Tomas MD Primary Care Pro vider Reason for Visit * Reason Comments Med Refill Encounter Details Date Type Department Care Team ([facility] st Contact Info) Description 07/19/2024 Refill [facility] MEDICINE 230 [place] [address] Delfina Robin CNM 230 [place] [address] Social History Tobacco Use Types Packs/Day Years [...] documented as of this encounter Care Teams Sales Administration Manager Relationship Specialty Start Date End Date Megan Tomas MD [address] [place] [id number] PCP - General Internal Medicine 01/26/23 documented as of this encounter
--- OUTSIDE RECORDS SUMMARY | 2025-05-31 17:10 | XMS_ITS | Encounter Summary ---
Author Organization [employer] Address [address] [place] [address] 7 [place] [address] Care Team Providers Care Fusing Furnace Loader Name Role Phone Megan Tomas MD Primary Care Pro vider Reason for Visit * Reason Onset Date Comments returning call 02/20/2023 Encounter Details Date Type Department Care Team ([facility] st Contact Info) Description 02/20/2023 Telephone [facility] MEDICINE 230 [place] [address] Megan Tomas MD [address] [place] [address] returning call Social History Tobacco Use Types [...] encounter Miscellaneous Notes * Telephone Encounter - aGby Conrad - 02/20/2023 11:19 AM EDT Tc from pt returning nurses call for pre-visit planning. Please contact pt at [phone] documented in this encounter Plan of Treatment Not on file documented as of this encounter Visit Diagnoses Not on filedocumented in this encounter Care Teams Fusing Furnace Loader Relationship Specialty Start Date End Date Megan Tomas MD [address] [place] [id number] PCP - General Internal Medicine 01/26/23 documented as of this encounter
--- OUTSIDE RECORDS SUMMARY | 2025-05-31 17:10 | XMS_ITS | Encounter Summary ---
Author Organization [employer] [employer] [facility] [employer] Address [address] [place] [address] 7 [place] [address] Care Team Providers Care Heel Slicker Name Role Phone Chuyita Verma [facility] Primary Care Provider [phone] Megan Tomas MD Primary Care Pro vider Encounter Details Date Type Department Care Team (Latest Contact Info) Description 06/07/2020 Abstract [facility] Dental, Provider, DDS Social History [...] on filedocumented in this encounter Care Teams Heel Slicker Relationship Specialty Start Date End Date Chuyita Verma [facility] [address] [place] [address] PCP - General Family Medicine 02/11/22 01/25/23 Megan Tomas MD [address] [place] [address] PCP - General Internal Medicine 01/26/23 documented as of this encounter
--- OUTSIDE RECORDS SUMMARY | 2025-05-31 17:10 | XMS_ITS | Encounter Summary ---
Author Organization [employer] Address [address] [place] [address] [address] [place] [address] Care Team Providers Care Chain Hooker Name Role Phone Megan Tomas MD Primary Care Pro vider Reason for Referral * Consultation (Routine) - Closed Specialty Diagnoses / Procedures Referred By Contac t Referred To Contact Obstetrics and Gynecology Diagnoses Advanced maternal age, 1st , first trimester Megan Tomas MD [address] [place] [address] Phone: tel: [facility] [address] [place] [phone] Phone: tel: fax: Referral ID Status Reason Start Date Expiration Date V isits Requested Visits Authorized [id number] Closed Specialty Services Required 05/29/2025 05/29/2026 1 1 Encounter Details Date Type Department Care Team (Late st Contact Info) Description 05/29/2025 Orders Only [facility] [address] [place] [address] [phone] Megan Tomas MD [address] [place], [place] [phone] Advanced maternal age, 1st , first trimester (Primary Dx) Social History Tobacco Use Types [...] as of this encounter Plan of Treatment Scheduled Referrals Name Type Priority Associated Diagnoses Order Schedule Referral to Obstetrics / Gynecology Outpatient Referral Routine Advanced maternal age, 1st , first trimester Expected: 05/29/2025 (Approximate), Expires: 05/29/2026 documented as of this encounter Procedures Procedure Name Priority Date/Time Associated Diagnosis Comments HCG, TOTAL, QN Routine 05/31/2025 1:32 PM EDT Advanced maternal age, 1st , first trimester documented in this encounter Results * hCG, Total, Quantitative (05/31/2025 1:32 PM EDT) HCG Quantitative 3,998 mIU/mL [facility] Comment:Weeks post LMP Appro ximate hCG(Last Menstrual Period) Range (mIU/ml)3 - 4 weeks 9 - 1304 - 5 weeks 75 - 2,6005 - 6 weeks 850 - 20,8006 - 7 weeks 4000 - 100,2007 - 12 weeks 11,500 - 289,98729 - 16 weeks 18,300 - 137,68083 - 29 weeks (2nd trimester) 1,400 - 53,79592 - 41 weeks (3rd trimester) 940 - 60,000The Hall B- hCG assay is used for the early detection ofpregnancy; it cannot be used to diagnose any conditionunrelated to . If a B-hCG level is not supportedby the clinical evidence, results should be confirmed by analternative method (qualitative urine hCG, for example). Blood Venous blood specimen / Unknown 05/31/2025 1:32 PM EDT 05/31/2025 4:05 PM EDT us Megan Savage MD LAB BLOOD ORDERAB LES Final Result [facility] [address] [place] [phone] [phone] documented in this encounter Visit Diagnoses Diagnosis Advanced maternal age, 1st , first trimester- Primary documented in this encounter Additional Health Concerns Assessment Noted Time PHQ-9 Depression Total Score: 1 03/05/20 9:41 AM EDT documented as of this encounter Care Teams Chain Hooker Relationship Specialty Start Date End Date Megan Tomas MD [address] [place] [phone] PCP - General Internal Medicine 01/26/23 documented as of this encounter
--- OUTSIDE RECORDS SUMMARY | 2025-05-31 17:11 | XMS_ITS | Encounter Summary ---
Author Organization [employer] Address [address] [place] [address] 7t [place] [address] Care Team Providers Care Insurance Healthcare Consultant Name Role Phone Megan Tomas MD Primary Care Pro vider Encounter Details Date Type Department Care Team (Late st Contact Info) Description 04/06/2023 Orders Only [facility] [address] [place], [place] [phone] Jennifer Sarah LPN Social History Tobacco Use [...] documented as of this encounter Care Teams Insurance Healthcare Consultant Relationship Specialty Start Date End Date Megan Tomas MD [address] [place] [address] PCP - General Internal Medicine 01/26/23 documented as of this encounter
--- OUTSIDE RECORDS SUMMARY | 2025-05-31 17:11 | XMS_ITS | Clinical Summary ---
Author Organization [email or web address] Address [address] [facility] 7t [place] [address] Care Team Providers Care Security Guards Dispatcher Name Role Phone Megan Tomas MD Primary Care Pro vider Allergies Active Allergy Reactions Criticality Noted Date Comments Sulfamethoxazole Rash Low 06/18/2016 Sulfamethoxazole-Trimethoprim Rash Low 2022 Trimethoprim Rash Low 06/18/2016 Medications calcipotriene (Dovonex) 0.005 % ointmentIndica tions:Rash APPLY BY TOPICAL ROUTE EVERY DAY A [...] 3 Active betamethasone, augmented, (Diprolene) 0.05 % ointmentIndica tions:Psoriasi s vulgaris Apply topically 2 times daily. 50 g 3 3 Active fluconazole (Diflucan) 150 MG tabletIndicati ons:Vaginal discharge Take one and then after 72hrs take another tablet 2 tablet 4 Active Drospirenone (Slynd) 4 MG tablet Take 1 tablet by mouth Once per day. 84 tablet 3 5 Active Vit-Fe Fumarate-FA ( Vitamins) 28-0.8 MG tabletIndicati ons:Family Planning Take 1 tablet by mouth Once per day. 90 tablet 3 5 026 Active ustekinumab (Stelara) injection INJECT 1 SYRINGE SUBCUTANEOUSLY EVERY 12 WEEKS 1 mL 11 5 Active Active Problems Problem Noted Date [...] Overview (03/05/2023): Stable Has therapy private care [facility] Psych provider manages care Buspirone 15 mg, 1 tablet AM, 1/2 tablet midday, 1 tablet at bedtime. Celexa 10 mg daily. Clonazepam 0.5mg BID PRN for anxiety Assessment & Plan (03/05/2023 10:10 AM EDT): Continue with current regimen No concerns F/U PRN Encounters Date Type Department Care Team Description 05/29/2025 Orders Only [facility] [address] [place], [place] [phone] Megan Tomas MD Advanced maternal age, 1st , first trimester (Primary Dx) 05/26/2025 Telephone [facility] [address] [place], [place] [phone] Megan Tomas MD Lab Orders 04/28/2025 Travel 03/03/2025 Refill [facility] [address] [place], [place] [phone] Kesha Yañez MD from Last 3 Months Immunizations Immunization Administration Dates Next Due DTaP 03/21/1997, 5,10/03/1991,11/15 [...] 68 10/21/2024 2:46 PM EST Temperature 37.1 C (98.7 F) 10/21/2024 2:46 PM EST Respiratory Rate 14 10/21/2024 2:46 PM EST [...] Years) and At-Risk Patients (6 to 49) Years (1 of 2 - PCV) 2008 HPV Vaccines (2 - 3-dose series) 03/24/2011 02/24/2011 SDOH Screening 02/21/2024 02/20/2023 Depression Screening 03/05/2024 03/05/2023, 03/05/20 23 COVID-19 Vaccine ( season) 2025 07/21/2021, 11/22/2020 Influenza Vaccine (#1) 2025 05/27/2024, 2020 Pap Smear 04/24/2025 04/24/2022 Family Planning (PISQ) 07/21/2025 07/21/2024 Tobacco Screening 07/21/2025 07/21/2024 Disability Screening 10/20/2025 10/20/2024 Cervical Cancer Screening 04/24/2027 HPV/Cotest 04/24/2027 04/24/2022 [...] 03/05/2023, 020 HIV Screening Completed 06/12/2023, 04/05/2020 Hepatitis A Vaccines Aged Out No long er eligible based on patient's age to complete this topic Meningococcal B Vaccine Aged Out No l onger eligible based on patient's age to complete [...] Advanced maternal age, 1st , first trimester HIV ANTIBODY/ANTIGEN ([place] DPH) Routine 06/12/2023 11:41 [...] Recently Relevant to Health Maintenance Results * hCG, Total, Quantitative (05/31/2025 1:32 PM EDT) HCG Quantitative 3,998 mIU/mL [facility] Comment:Weeks post LMP Appro ximate hCG(Last Menstrual Period) Range (mIU/ml)3 - 4 weeks 9 - 1304 - 5 weeks 75 - 2,6005 - 6 weeks 850 - 20,8006 - 7 weeks 4000 - 100,2007 - 12 weeks 11,500 - 289,37571 - 16 weeks 18,300 - 137,74277 - 29 weeks (2nd trimester) 1,400 - 53,59196 - 41 weeks (3rd trimester) 940 - [...] MD LAB BLOOD ORDERAB LES Final Result Performing Organization Address [facility]/ZIP Co de Phone Number [facility] [address] [place] [phone] * HIV Ab/Ag ([facility]) (06/12/2023 11:41 AM EDT) [facility] HIV AB/AG Nonreactive Nonreactive [facility] Comment:HIV-1 p24 Ag and/or HIV-1/HIV-2 Ab [...] 1 AM EDT 06/12/2023 1:33 PM EDT us Kesha Yañez MD LAB BLOOD ORDERABLES Final Re sult Performing Organization Address [facility]/ZIP Co de Phone Number [facility] [address] [place] [address] [phone] * Hepatitis Panel, General (03/05/2023 10:45 AM EDT) Hepatitis A IgM Nonreactive Nonreactive [facility] Comment:IgM antibodies to GAYLE V not detected; does not exclude earlyacute or recovered HAV infection. ~Hepatitis B Surface Antibody REACTIVE Nonreactive [facility] Comment:REACTIVE: > 11.99 mI U/mL Hepatitis B Core Antibody Nonreactive Nonreactive [facility] Hepatitis C Antibody Nonreactive Nonreactive [facility] Comment:Antibodies to HCV no t detected; does not exclude early acuteHCV infection. Hepatitis B Surface Ag Negative Negative [facility] Blood 03/05/2023 10:4 5 AM EDT 03/05/2023 1:35 PM EDT Gosia Pozo [employer]PUTER CONSULTANT LAB BLOOD ORDERABLES Final Result [facility] [address] [place] [phone] * Lipid Panel, Standard (03/05/2023 10:45 AM EDT) Triglycerides 75 mg/dL [facility] Comment:Desirable Triglyceri de: less than 150 mg/dLBorderline High Triglyceride 150-199 mg/dLHigh Triglyceride: 200-499 mg/dLVery High Triglyceride: greater than or equal to 5OO mg/dL Cholesterol 163 mg/dL [facility] Comment:Desirable Cholestero l: less than 200 mg/dLBorderline High Cholesterol: 200-239 mg/dLHigh Cholesterol: greater than 239 mg/dL LDL Cholesterol Calculated 79 mg/dl [facility] Comment:Desirable LDL: less than 100 mg/dLNear Optimal/Above Optimal LDL: 110- 129 mg/dLBorderline High LDL: 130-159 mg/dLHigh LDL: 160-189 mg/dLVery High LDL: greater than or equal to 190 mg/dL HDL Cholesterol 69 mg/dL [facility] Comment:Desirable HDL: great er than 40 mg/dL Note: This HDL assay may give artificially low results in patients with liver disease. Blood Venous blood specimen / Unknown 03/05/2023 10:45 AM EDT 03/05/2023 1:35 PM EDT Gosia Pozo [employer] COMPUTER CONSULTANT LAB BLOOD ORDERABLES Final Result [facility] [address] [place] [address] [phone] * THINPREP TIS PAP AND HPV mRNA E6/E7 WITH REFLEX TO HPV 16,18/45 (04/24/2022 10:00 AM EDT) Clinical Information: None given [facility] COMMENT SEE COMMENT [facility] Comment: EXPLANATORY NOTE: The Pap is a screening test for cervical cancer. It is not a diagnostic test and is subject to false negative and false positive results. It is most reliable when a satisfactory sample, regularly obtained, is submitted with relevant clinical findings and history, and when the Pap result is evaluated along with historic and current clinical information. COMMENT: This Pap test has been evaluated with computer assisted technology. [employer] [facility] Cytotechnologis t: SEE COMMENT [facility] Comment: MSM, CT(ASCP) CT screening location: [place] [address] HPV nRNA E6/E7 Not Detected Not Detected [employer] Comment: Methodology: Insurance Billing Specialist-Mediated Amplification This assay detects E6/E7 viral messenger RNA (mRNA) from 14 high-risk HPV types (16,18,31,33,35,39,45,51,52,56,58,59,66,68). Cervical sources are required for HPV testing. If a vaginal source from a patient who has had a total hysterectomy with removal of cervix was submitted, please contact the testing laboratory for alternative testing options. For additional information, please refer to http://[email or web address]/faq/ATP277j2 (This link if provided for information/ educational purposes only.) Interpretation/ Result: Negative for intraepithelial lesion or malignancy. [employer] [facility] LMP: 03/27/2027 [facility] Prev. BX: NONE [facility] Prev. PAP: NIL 04/2019 [facility] SOURCE: Cervix [facility] Statement Of Adequacy: SEE COMMENT [facility] Comment: Satisfactory for evaluation. Endocervical/transformation zone component absent. 04/24/2022 10:0 0 AM EDT Delfina Robin CNM LAB PATHOLOGY ORDERABLES Final Result [facility] [address] [place] [address], from Last 3 Months or Most Recently Relevant to Health Maintenance Insurance [facility] , [address] [place] [address] Care Teams Security Guards Dispatcher Relationship Specialty Start Date End Date Megan Tomas MD [address] [place] [phone] PCP - General Internal Medicine 01/26/23
== END 2025-05-31 13:28 | disposition home or self-care (01) ==
LOC: HO.HHCL 13:27
PROVIDERS: PCP Student in an Organized Health Care Education/Training Program; Visit Provider Student in an Organized Health Care Education/Training Program
DX: O09.511 Supervision of elderly primigravida, first trimester (principal)
CPT/HCPCS: 36415; 84702